=== PATIENT | female | born 1980 | race Hispanic/Latino ===

== ENCOUNTER → 2017-10-15 | Outpatient (CLI) | payer OTHER ==
[2017-10-15 07:58] LABS: BASOPHILS % (AUTO) 0.4 % (0.0-5.0); EOSINOPHILS % (AUTO) 1.4 % (0.0-8.0); LYMPHOCYTES % (AUTO) 28.8 % (21.0-51.0); MEAN CORPUSCULAR HEMOGLOBIN 30.8 pg (27.0-33.0); MEAN CORPUSCULAR HGB CONC 34.5 g/dL (32.0-36.0); MEAN CORPUSCULAR VOLUME 89.2 fL (79-99); MONOCYTES % (AUTO) 6.2 % (3.0-13.0); NEUTROPHILS % (AUTO) 63.2 % (40.0-77.0); PLATELET COUNT (AUTO) 260 K/uL (130-400); RED BLOOD CELL COUNT(AUTO) 4.26 MIL/uL (4.00-5.50); RED CELL DISTRIBUTION WIDTH 11.9 % (11.0-15.5)
[2017-10-15 08:20] LABS: ALBUMIN 4.3 g/dL (3.5-5.0); BILIRUBIN,TOTAL 0.7 mg/dL (0.2-1.0); CREATININE 0.8 mg/dL (0.5-1.5); POTASSIUM 4.2 mmol/L (3.5-5.1); THYROID STIMULATING HORMONE 0.65 uIU/mL (0.36-3.74); TOTAL PROTEIN, SERUM 7.7 g/dL (6.0-8.3)
== END | disposition home or self-care (01) ==
LOC: LAB 07:17
PROVIDERS: ATTEND Physician Assistant Medical
DX: E28.39 Other primary ovarian failure (principal); R07.9 Chest pain, unspecified
CPT/HCPCS: 36415; 80053; 80061; 82627; 82670; 82672; 83001; 83002; 84144; 84402; 84403; 84443; 85025

== ENCOUNTER → 2018-01-30 | Outpatient (CLI) | payer OTHER ==
[~2018-01-30] MED LIST: ISOVUE-370 50ML VIAL IV ONE
== END | disposition home or self-care (01) ==
LOC: RAH 07:37
PROVIDERS: ATTEND Physician Assistant Medical
DX: G43.909 Migraine, unspecified, not intractable, without status migrainosus (principal)
CPT/HCPCS: 70470; Q9967

== ENCOUNTER → 2018-02-05 | Outpatient (CLI) | payer OTHER | END | disposition home or self-care (01) | LOC: RAH 09:30 | PROVIDERS: ATTEND Orthopaedic Surgery | DX: M25.461 Effusion, right knee (principal); M17.0 Bilateral primary osteoarthritis of knee | CPT/HCPCS: 73721 ==

== ENCOUNTER → 2018-05-13 | Outpatient (CLI) | payer OTHER ==
[2018-05-13 16:20] LABS: APPEARANCE,URINE Clear (CLEAR); BILIRUBIN,URINE Negative (NEGATIVE); COLOR,URINE Yellow (YELLOW); GLUCOSE, URINE (UA) Negative (NEGATIVE); KETONES,URINE Negative (NEGATIVE); LEUKOCYTE ESTERASE ,URINE Negative (NEGATIVE); NITRATE,URINE Negative (NEGATIVE); OCCULT BLOOD,URINE Negative (NEGATIVE); PROTEIN,URINE Negative (NEGATIVE)
== END | disposition home or self-care (01) ==
LOC: LAB 16:00
PROVIDERS: ATTEND Physical Medicine & Rehabilitation
DX: M54.5 Low back pain (principal); Z87.891 Personal history of nicotine dependence
CPT/HCPCS: 81003; 87088

== ENCOUNTER → 2018-05-15 | Outpatient (CLI) | payer OTHER ==
[2018-05-15 11:44] LABS: CREATININE 0.9 mg/dL (0.5-1.5); POTASSIUM 3.7 mmol/L (3.5-5.1)
== END | disposition home or self-care (01) ==
LOC: LAB 11:23
PROVIDERS: ATTEND Physical Medicine & Rehabilitation
DX: I87.8 Other specified disorders of veins (principal); R10.9 Unspecified abdominal pain
CPT/HCPCS: 36415; 74018; 80048

== ENCOUNTER → 2018-05-16 | Outpatient (CLI) | payer OTHER | END | disposition home or self-care (01) | LOC: RAH 12:51 | PROVIDERS: ATTEND Physical Medicine & Rehabilitation | DX: R10.9 Unspecified abdominal pain (principal); N32.89 Other specified disorders of bladder | CPT/HCPCS: 76770 ==

== ENCOUNTER → 2018-08-26 | Outpatient (CLI) | payer OTHER | END | disposition home or self-care (01) | LOC: RAH 09:44 | PROVIDERS: ATTEND Physician Assistant Medical | DX: M54.5 Low back pain (principal) | CPT/HCPCS: 72100 ==

== ENCOUNTER 2018-11-05 11:35 | Day surgery (SDC) | payer OTHER ==
[2018-11-05] VITALS (8 sets, daily range): BP systolic 103–120; BP diastolic 60–71
[~2018-11-05] VITALS: Ht 165.1 cm; Wt 71.8 kg
[2018-11-05] MEDS ORDERED: IBUP-2353 PO (12:19)
[2018-11-05] MEDS ORDERED: EXCEES PO (12:19)
[2018-11-05] MEDS ORDERED: ACET-66 PO (12:19)
[2018-11-05] MEDS ORDERED: ROPIVACAINE 0.5% 5MG/ML 30ML IJ ONE (12:22)
[2018-11-05] MEDS ORDERED: LIDOCAINE HCL 2% 20ML ONE (12:22)
[2018-11-05] MEDS ORDERED: ONDANSETRON 4 MG TABLET PO SCH (13:15)
[2018-11-05] MEDS ORDERED: KETOROLAC TROMETHAMINE 30MG/ML IM SCH (13:45)
[2018-11-05] MEDS ORDERED: KETOROLAC TROMETHAMINE 60 MG/2 ML VIAL ONE (13:52)
--- NOTE | 2018-11-05 14:08 | NUR ---
adm 30mg im tordal times one per doctor jeannie
== END 2018-11-05 14:50 | disposition home or self-care (01) ==
LOC: DAH 11:35
PROVIDERS: ATTEND Pain Medicine Pain Medicine
DX: M54.81 Occipital neuralgia (principal); M53.3 Sacrococcygeal disorders, not elsewhere classified
CPT/HCPCS: 64450 ×2; A4215; A4606; J1040; J1885; J2795; J3490; Q0162

== ENCOUNTER → 2018-11-14 | Outpatient (CLI) | payer OTHER ==
[~2018-11-14] MED LIST changes: +ACET-66 PO; +EXCEES PO; +IBUP-2353 PO; -ISOVUE-370 50ML VIAL IV ONE
== END | disposition home or self-care (01) ==
LOC: RAH 10:14
PROVIDERS: ATTEND Psychiatry & Neurology Neurology
DX: G43.909 Migraine, unspecified, not intractable, without status migrainosus (principal)
CPT/HCPCS: 70544

== ENCOUNTER → 2018-11-24 | Outpatient (CLI) | payer OTHER ==
[2018-11-24 08:47] LABS: BASOPHILS % (AUTO) 0.4 % (0.0-5.0); EOSINOPHILS % (AUTO) 2.5 % (0.0-8.0); HEMATOCRIT 37.7 % (36-48); LYMPHOCYTES % (AUTO) 34.7 % (21.0-51.0); MEAN CORPUSCULAR HEMOGLOBIN 30.8 pg (27.0-33.0); MEAN CORPUSCULAR HGB CONC 34.4 g/dL (32.0-36.0); MEAN CORPUSCULAR VOLUME 89.6 fL (79-99); MONOCYTES % (AUTO) 7.9 % (3.0-13.0); NEUTROPHILS % (AUTO) 54.5 % (40.0-77.0); PLATELET COUNT (AUTO) 231 K/uL (130-400); WHITE BLOOD COUNT (AUTO) 6.9 K/uL (4.8-10.8)
[2018-11-24 10:12] LABS: ALBUMIN 4.3 g/dL (3.5-5.0); BILIRUBIN,TOTAL 0.7 mg/dL (0.2-1.0); CREATININE 0.9 mg/dL (0.5-1.5); POTASSIUM 3.8 mmol/L (3.5-5.1); THYROID STIMULATING HORMONE 0.68 uIU/mL (0.36-3.74)
== END | disposition home or self-care (01) ==
LOC: LAB 07:08
PROVIDERS: ATTEND Obstetrics & Gynecology
DX: E28.310 Symptomatic premature menopause (principal)
CPT/HCPCS: 36415; 80053; 82670; 83001; 84144; 84402; 84403; 84439; 84443; 84481; 85025

== ENCOUNTER 2019-01-05 08:38 | Emergency (ER) | payer OTHER ==
[2019-01-05 09:19] LABS: BASOPHILS % (AUTO) 0.3 % (0.0-5.0); EOSINOPHILS % (AUTO) 1.4 % (0.0-8.0); HEMATOCRIT 36.5 % (36-48); LYMPHOCYTES % (AUTO) 31.4 % (21.0-51.0); MEAN CORPUSCULAR HEMOGLOBIN 30.7 pg (27.0-33.0); MEAN CORPUSCULAR HGB CONC 34.1 g/dL (32.0-36.0); MEAN CORPUSCULAR VOLUME 90.1 fL (79-99); MONOCYTES % (AUTO) 6.4 % (3.0-13.0); NEUTROPHILS % (AUTO) 60.5 % (40.0-77.0); PLATELET COUNT (AUTO) 233 K/uL (130-400); RED BLOOD CELL COUNT(AUTO) 4.05 MIL/uL (4.00-5.50); RED CELL DISTRIBUTION WIDTH 12.5 % (11.0-15.5); WHITE BLOOD COUNT (AUTO) 6.9 K/uL (4.8-10.8)
[2019-01-05] MEDS ORDERED: DIAZEPAM 5 MG TABLET ONE (09:19)
[2019-01-05 09:26] LABS: CREATININE 1.5 mg/dL (0.5-1.5); POTASSIUM 4.3 mmol/L (3.5-5.1)
[2019-01-05 09:31] LABS: ALBUMIN 4.1 g/dL (3.5-5.0); BILIRUBIN,TOTAL 0.5 mg/dL (0.2-1.0); INR 0.91 (0.85-1.15); PARTIAL THROMBOPLASTIN TIME 25.9 SEC (26.3-35.5); PROTHROMBIN TIME 9.6 SEC (9.6-11.6); TOTAL PROTEIN, SERUM 7.3 g/dL (6.0-8.3)
[2019-01-05 09:40] LABS: APPEARANCE,URINE Clear (CLEAR); BILIRUBIN,URINE Negative (NEGATIVE); COLOR,URINE Yellow (YELLOW); GLUCOSE, URINE (UA) Negative (NEGATIVE); KETONES,URINE Trace mg/dL (NEGATIVE); LEUKOCYTE ESTERASE ,URINE Negative (NEGATIVE); NITRATE,URINE Negative (NEGATIVE); OCCULT BLOOD,URINE Negative (NEGATIVE); PH,URINE 5.5 (5.0-8.0); PROTEIN,URINE Negative (NEGATIVE)
[2019-01-05 09:57] LABS: BACTERIA,URINE Rare /HPF (None Seen); MUCUS,URINE Many LPF (None Seen); RBC,URINE 0-1 /HPF (0-1); SQUAMOUS EPITHELIAL CELL,UR Few /HPF (0-2)
== END 2019-01-05 11:47 | disposition home or self-care (01) ==
LOC: EDH 08:38
DX: S20.212A Contusion of left front wall of thorax, initial encounter (principal); G43.909 Migraine, unspecified, not intractable, without status migrainosus; Z98.890 Other specified postprocedural states; Z90.49 Acquired absence of other specified parts of digestive tract; W51.XXXA Accidental striking against or bumped into by another person, initial encounter; Y93.89 Activity, other specified; Y92.89 Other specified places as the place of occurrence of the external cause; Y99.8 Other external cause status
CPT/HCPCS: 36415; 71045; 80053; 81001; 82550; 83880; 84484; 85025; 85378; 85610; 85730; 93005